=== PATIENT | female | born 1925 | race Caucasian/White ===

== ENCOUNTER → 2016-08-05 | Outpatient (CLI) | payer MEDICARE | LOC: RAD 17:23 | DX: R06.00 Dyspnea, unspecified (principal); Z95.1 Presence of aortocoronary bypass graft | CPT/HCPCS: 71020 ==

== ENCOUNTER → 2016-09-02 | Outpatient (CLI) | payer MEDICARE | LOC: RAD 11:58 | DX: R05 Cough (principal) | CPT/HCPCS: 71020 ==